=== PATIENT | male | born 2000 | race Caucasian/White ===

== ENCOUNTER 2024-02-24 11:28 | Outpatient (AMB) | payer BC, SELFPAY ==
--- NOTE | 2024-02-24 11:34 | MHC.PC.OV ---
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 Intake Note: New patient visit Operational Trainer Required: No Allergies No Known Allergies Allergy (Verified 02/24/24 11:37) Medication List - Last Reconciled 02/24/24 by Elza Maldonado PA-C pantoprazole 20 mg PO QAM Tobacco use date assessed: 02/24/24 Dental Screening Dental Screen Date: 02/24/24 Did you have a dental visit in the last 12 months?: Yes Did you have a dental problem in the last 6 months where you did not have access to dental care?: No Was dental information given to patient?: Patient has dentist HPI VEIN ACCESS TECHNICIAN HPI Details History of Present Illness The patient is a 23-year-old male presenting Today to [facility] care and with gastrointestinal symptoms. He reports experiencing chronic bloating and constipation over the past five years, coinciding with when he stopped seeing a circular sawyer stone. The patient was previously prescribed Prilosec by his circular sawyer stone, which provided relief for approximately one year before becoming ineffective. He describes the bloating as constant and persistent, which does not significantly fluctuate with weight changes. he states that it is not painful. It is sometimes made worse with food. Additionally, the patient experiences frequent burping, acid reflux, and occasional heartburn. No diagnostic tests or evaluations for H. pylori have been conducted. Spicy and acidic foods, along with caffeine, are identified as triggers, although he finds it challenging to consistently avoid them. The patient smokes nicotine And drinks coffee daily. He denies significant abdominal pain associated with meals or spontaneous occurrences, and there is no known family history of inflammatory bowel disease, celiac disease or cancer. A prior evaluation at a hospital included a CT scan showing mild constipation, with no other significant findings. A previous ultrasound addressed minor discomfort, showing no substantial pathological findings. The patient experiences occasional constipation that correlates with reduced fluid intake, which he is working on improving. Declines STD screening today as part of a physical. Social History - Smokes via vaping, using nicotine. 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 - Lives in an apartment; previously resided with his mother. - Active lifestyle due to employment responsibilities. - Consumes a diet occasionally triggered by caffeine and spicy/acidic foods. Review of Systems - Gastrointestinal: Reports constipation, frequent bloating and burping, acid reflux. Denies significant abdominal pain. - Respiratory: Denies difficulty swallowing or food sticking. - Genitourinary: Denies testicular lumps or changes. - Neurological: Denies any issues with motor activity. - Musculoskeletal: Denies pain or numbness. Physical Exam General: Cooperative, healthy appearing, comfortable, no acute distress and well developed Orientation: Patient oriented x3 Limitations: No limitations Head: Normal to inspection Ears: Hearing grossly normal bilaterally, TMs WNL Nose: Normal external nose present Face and sinus: Normal facial exam, sinuses nontender Eyes: Appearance normal, both eyes and all related structures Neck: Normal visual inspection and Yes full ROM Respiratory: Normal respiratory effort and able to speak in complete sentences. Clear to auscultation bilaterally Cardiovascular: Regular rate and rhythm. Normal S1 and S2 GI: Normal to inspection. Soft to palpation and nontender, no CVA tenderness Skin: No rashes or lesions noted Neuro: Patient oriented x3, cranial nerves 2-12 grossly intact, [id number] and heel to toe walking without abnormality. Strength intact Extremities: Normal to inspection Results - Labs: Previous labs showed normal kidney function, electrolytes, liver function, with mild dehydration noted. - Imaging: CT of abdomen and pelvis revealed mild constipation. Previous scrotum ultrasound showed a small epididymal cyst and varicocele. Plan - Gastroesophageal Reflux Disease GERD): Recommend initiation of pantoprazole. Stool sample for H. pylori testing before commencing the medication. Plan lifestyle modifications to avoid known dietary triggers. - Chronic Bloating and Constipation: Advise increased hydration, dietary adjustments including fiber intake, and regular physical activity. Suggest trying magnesium supplementation if needed to aid bowel movements. - Nicotine Dependence: Encourage cessation of vaping to aid in symptom management and overall health improvement. Patient was informed and verbally consented to the use of an ambient scribe for clinic note documentation during this visit. Discussion Notes I discussed with the patient the potential diagnosis of GERD and its management with pantoprazole, focusing on the benefits and mechanism of action. We reviewed the implications of nicotine on healing and gastrointestinal health, highlighting the necessity for lifestyle changes. The importance of ruling out H. pylori infection was emphasized, with details on the stool test provided. Additionally, I referred the patient to a gastroenterology consult at [facility] for further evaluation due to local GI department limitations. Follow-up was scheduled in a few months to assess the treatment regimen's effectiveness, considering likely delays in specialist appointments. The patient understood the plan and expressed agreement. Patient Instructions [facility] Surgical History (Updated 02/24/24 @ 11:40 by Tonya Vera CMA) H/O wisdom tooth extraction Social History (Updated 02/24/24 @ 11:39 by Tonya Vera CMA) Housing: Apartment Alcohol intake: current Patient Tobacco Use Status: Never used Tobacco e-Cigarette/Vaping Use: Currently Using Second Hand Smoke Exposure: No Substance Use Type: Marijuana service: No Current occupational status: employed Current occupation: [employer] Current occupational exposures/hazards: No Cognitive needs: No Hearing needs: No Vision needs: No Questionnaire PHQ-9 Over the last 2 weeks, how often have you been bothered by any of the following problems? 1. Little interest or pleasure in doing things: not at all 2. Feeling down, depressed, or hopeless: not at all 3. Trouble falling or staying asleep, or sleeping too much: not at all 4. Feeling tired or having little energy: not at all 5. Poor appetite or overeating: not at all 6. Feeling bad about yourself - or that you are a failure or have let yourself or your family down: not at all 7. Trouble concentrating on things, such as reading the newspaper or watching television: not at all 8. Moving or speaking so slowly that other people could have noticed. Or the opposite - being so fidgety or restless that you have been moving around a lot more than usual: not at all 9. Thoughts that you would be better off or of hurting yourself in some way: not at all Total score: 0 Depression Screening Interpretation: Negative Depression Screening Done: Yes 42705 - PHQ-9 Billing: Yes Source: Developed by Drs. Bry Andrade, Rae Green, Moses Rutherford and colleagues, with an educational henry from [employer]. Thrive Questionnaire Date Thrive assessed: 02/24/24 I am a: Patient What is your living situation today?: I have a steady place to live Within the past 12 months, did the food you bought not last and you didn't have the money to get more?: I choose not to answer this question Within the past 12 months, did you worry whether your food would run out before you got money to buy more?: I choose not to answer this question Do you have trouble paying for medicines?: I choose not to answer this question Do you have trouble getting transportation to medical appointments?: I choose not to answer this question Do you have trouble paying your heating and electricity bill?: I choose not to answer this question Do you have trouble taking care of your child, family member or friend?: I choose not to answer this question Do you have trouble with day-to-day activities such as bathing, preparing meals, shopping, managing finances, etc.?: I choose not to answer this question Are you currently unemployed and looking for a job?: I choose not to answer this question Are you interested in more education?: I choose not to answer this question Please select the resources that you would like help with: None Currently or been in a relationship where the following occur: No concerns reported THRIVE Score: 0 AUDIT C Alcohol Use Questionnaire (AUDIT-C) 1. How often do you have a drink containing alcohol?: Monthly or less 2. How many drinks containing alcohol do you have on a typical day when you are drinking?: 1 or 2 3. How often do you have six or more drinks on one occasion?: Less than monthly Total Score: 2 ANJU-7 AMB Questionnaire ANJU-7 Date ANJU - 7 assessed: 02/24/24 Feeling nervous, anxious, or on edge: 0 = Not at all Not being able to stop or control worryin = Not at all Worrying too much about different things: 0 = Not at all Trouble relaxin = Not at all Being so restless that it is hard to sit still: 0 = Not at all Becoming easily annoyed or irritable: 0 = Not at all Feeling afraid as if something awful might happen: 0 = Not at all Total ANJU-7 score (0-4 normal; 5-9 mild; 10-14 moderate; 15-21 severe): 0 Source: Developed by Drs. Bry Andrade, Rae Green, Moses Rutherford and colleagues, with an educational henry from [employer]. ANJU-7 Assessment Billing ANJU-7 Assessment Tool: ANJU-7 Assessment 99695 Physical exam (Primary Care) Vital Signs: Last Vital Signs Pulse 60 02/24/24 11:40 BP 124/60 02/24/24 11:40 Pulse Ox 99 02/24/24 11:40 Oxygen Delivery Method Room Air 02/24/24 11:40 BMI result Body Mass Index 24.8 Tobacco/Smoking Status: Tobacco use Status Tobacco use date assessed 02/24/24 02/24/24 11:43 Patient Tobacco Use Status Never used Tobacco 02/24/24 11:43 e-Cigarette/Vaping Use Currently Using 02/24/24 11:43 PHQ-9: PHQ-9 Score PHQ-9: Total score 0 02/24/24 11:43 Depression Screening Interpretation: Negative Thrive Assessment: Date of Thrive Assessment Date Thrive assessed 02/24/24 02/24/24 11:43 Currently or been in a relationship where the following occur: No concerns reported Coding Level of Care Code Est Pt Prev Care 18-39y(35776) Diagnoses GERD with esophagitis K21.00 Abdominal bloating R14.0 Routine general health check-up of defined subpopulation Z00.8 Constipation K59.00 Additional Codes PHQ-9 - 47897 - PHQ-9 Billing: Yes ([id number]) ANJU-7 Assessment Billing - ANJU-7 Assessment Tool: ANJU-7 Assessment 25989 ([id number]) Assessment & Plan Assessment & Plan (1) GERD with esophagitis: Code(s): K21.00 - Gastro-esophageal reflux disease with esophagitis, without bleeding Category: Medical (2) Abdominal bloating: Code(s): R14.0 - Abdominal distension (gaseous) Category: Medical (3) Routine general health check-up of defined subpopulation: Code(s): Z00.8 - Encounter for other general examination (4) Constipation: Code(s): K59.00 - Constipation, unspecified Category: Medical Plan . Orders: Orders Comprehensive [place]. Panel Fast Today K21.00 - Gastro-esophageal reflux disease with esophagitis, without bleeding, R14.0 - Abdominal distension (gaseous), Z00.00 - Encounter for general adult medical examination without abnormal findings, Z00.8 - Encounter for other general examination Transglutaminase Ab IgG Today K21.00 - Gastro-esophageal reflux disease with esophagitis, without bleeding, R14.0 - Abdominal distension (gaseous), Z00.00 - Encounter for general adult medical examination without abnormal findings, Z00.8 - Encounter for other general examination Endomysial IgA rflx Titer Today K21.00 - Gastro-esophageal reflux disease with esophagitis, without bleeding, R14.0 - Abdominal distension (gaseous), Z00.00 - Encounter for general adult medical examination without abnormal findings, Z00.8 - Encounter for other general examination Immunoglobulin A Today K21.00 - Gastro-esophageal reflux disease with esophagitis, without bleeding, R14.0 - Abdominal distension (gaseous), Z00.00 - Encounter for general adult medical examination without abnormal findings, Z00.8 - Encounter for other general examination Complete Blood Count Auto Diff Today K21.00 - Gastro-esophageal reflux disease with esophagitis, without bleeding, R14.0 - Abdominal distension (gaseous), Z00.00 - Encounter for general adult medical examination without abnormal findings, Z00.8 - Encounter for other general examination TSH reflex Free T4 Today K21.00 - Gastro-esophageal reflux disease with esophagitis, without bleeding, R14.0 - Abdominal distension (gaseous), Z00.00 - Encounter for general adult medical examination without abnormal findings, Z00.8 - Encounter for other general examination Lipid Panel Today K21.00 - Gastro-esophageal reflux disease with esophagitis, without bleeding, R14.0 - Abdominal distension (gaseous), Z00.00 - Encounter for general adult medical examination without abnormal findings, Z00.8 - Encounter for other general examination H pylori Ag Stool Today K21.00 - Gastro-esophageal reflux disease with esophagitis, without bleeding, R14.0 - Abdominal distension (gaseous), Z00.00 - Encounter for general adult medical examination without abnormal findings, Z00.8 - Encounter for other general examination Referrals Gastroenterology Referral K21.00 - Gastro-esophageal reflux disease with esophagitis, without bleeding, K59.00 - Constipation, unspecified, R14.0 - Abdominal distension (gaseous) Medications: New pantoprazole 20 mg PO QAM 90 tabs 0RF
[2024-02-24 11:40] VITALS: BP 124/60; PULSE 60; O2SAT 99; BMI 24.8
== END 2024-02-24 12:17 | disposition home or self-care (01) ==
PROVIDERS: PCP Physician Assistant; Visit Provider Physician Assistant
DX: Z00.00 Encounter for general adult medical examination without abnormal findings (principal); K21.00 Gastro-esophageal reflux disease with esophagitis, without bleeding; R14.0 Abdominal distension (gaseous); K59.00 Constipation, unspecified

== ENCOUNTER → 2024-02-24 11:28 | Outpatient (BNVA) | payer BC, SELFPAY | PROVIDERS: Visit Provider Physician Assistant | DX: K21.00 Gastro-esophageal reflux disease with esophagitis, without bleeding (principal); R14.0 Abdominal distension (gaseous); K59.00 Constipation, unspecified | CPT/HCPCS: 96127 ==